=== PATIENT | male | born 1985 ===

== ENCOUNTER 2024-11-10 06:04 | Day surgery (SDC) | payer BC, SELFPAY ==
[2024-11-10] VITALS (13 sets, daily range): BP systolic 100–122; BP diastolic 58–81; PULSE 73–90; RESP 15–20; TEMP 36.5–36.7; O2SAT 93–97; BMI 36.3
[2024-11-10] MEDS: Lactated Ringers 1,000 ML 80 ML IV (06:48)
--- NOTE | 2024-11-10 07:00 | W.PM.HP.N ---
Date of service: 11/10/24 Time of Service: 07:01 Assessment and Plan Assessment and plan (1) Phimosis: Assessment and plan: For circumcision History of Present Illness History of Present Illness Chief Complaint: Phimosis Narrative: This is a 39-year-old gentleman who reports that he has had phimosis for several years. He tells me that when he has tried to retract the skin, he tends to get quite a few cuts on the foreskin. He has pain when he develops an erection. When there is an open raw area on the skin, he will have pain when the urine comes in contact with the open skin He is not seeing any gross hematuria. He has no fever or chills. We are unaware of any positive urine cultures. He has not developed paraphimosis. He has tried topical lidocaine and topical steroids with no improvement. Review of Systems Narrative: No fevers or chills No vision change or dysphasia No diabetes or thyroid No shortness of breath, cough or hemoptysis No chest pain or palpitations No nausea, vomiting, hepatitis, ulcers, jaundice, diarrhea or constipation No seizures, strokes or peripheral neuropathy No bleeding disorders or anemia No gout PFSH All Active Problems Hypertension (Chronic) Polyuria (Acute) History of appendectomy (Chronic) Obesity (Chronic) Molluscum contagiosum infection (Acute) Medical History Phimosis Social History Smoking/Tobacco Use Status: Never Smoking risk assessment performed?: Yes Alcohol Intake: never Drug use: Never Substance use type: does not use Housing: house Do you feel safe at home: Yes Additional Social history: single Meds Allergies and Home Medications Allergies Allergy/AdvReac Type Severity Reaction Status Date / Time No Known Allergies Allergy Verified 11/10/24 06:24 Home Medications ?Medication ?Instructions ?Recorded ?Confirmed ?Type Unknown [No Known Home Meds] 10/10/24 11/07/24 History Exam Const General: cooperative Neck Neck: supple Resp Effort & Inspection: normal respiratory effort Auscultation: clear to auscultation bilaterally Cardio Rate: regular rate Rhythm: regular rhythm GI Palpation: soft Penis: phimosis Neuro General: patient alert, patient awake and patient oriented x3 Results Last Vital Signs Temp 36.7 C 11/10/24 06:14 Pulse 73 11/10/24 06:14 Resp 17 11/10/24 06:14 BP 105/67 11/10/24 06:14 Pulse Ox 97 11/10/24 06:14 Time Spent Time spent with Patient: <40 minutes Time was spent: other
--- NOTE | 2024-11-10 07:04 | W.ANESPRE ---
General Info Date of Service Date Performed: 11/10/24 Height: 5 ft 10 in Weight: 114.8 kg Body Mass Index (BMI): 36.3 Surgical Procedure: Operation Date: 11/10/24 07:40 Proposed Procedure Side Surgeon p Circumcision Tommy Frazier MD Meds Allergies and Home Medications Allergies Allergy/AdvReac Type Severity Reaction Status Date / Time No Known Allergies Allergy Verified 11/10/24 06:24 Home Medication ?Medication ?Instructions ?Recorded Unknown [No Known Home Meds] 10/10/24 Current Visit Medications: Current Medications Generic Name Dose Route Start Last Admin Trade Name Freq PRN Reason Stop Dose Admin Ringer's Solution 1,000 mls @ 80 mls/hr 11/10/24 06:00 11/10/24 06:48 IV 11/10/24 23:59 80 mls/hr INFUSION DIANA Administration Cefazolin Sodium/Dextrose 2 gm in 50 mls @ 100 mls/hr 11/10/24 06:00 Ancef Duplex IVPB 11/10/24 23:59 PREOP DIANA IV Miscellaneous Supplies 1 each 11/10/24 06:00 Iv Access IV 11/10/24 23:59 DIRECTED DIANA Sodium Chloride 0 ml 11/10/24 06:00 Normal Saline Flush 10 Ml Syr IV 11/10/24 23:59 PRN PRN Sodium Chloride 0 ml 11/10/24 06:00 Normal Saline 10 Ml Vial IJ 11/10/24 23:59 DIRECTED PRN Sterile Water 0 ml 11/10/24 06:00 Water,Injection,Sterile 10 Ml Vial IJ 11/10/24 23:59 DIRECTED PRN PFSH Active Problems Active Problems: Problem Status Onset Code Hypertension Chronic I10 Polyuria Acute R35.89 History of appendectomy Chronic Z90.49 Obesity Chronic E66.9 Molluscum contagiosum infection Acute B08.1 Medical History Medical History Phimosis Tobacco Smoking/Tobacco Use Status: Never Passive smoking exposure: No Alcohol Alcohol Intake: never Substance Use Substance use: Never Substance use type: does not use Vital Signs and Lab Results Vital Signs Most Recent Vital Signs in EMR: Most Recent Vital Signs Temp Pulse Resp BP Pulse Ox 36.7 C 73 17 105/67 97 11/10/24 06:14 11/10/24 06:14 11/10/24 06:14 11/10/24 06:14 11/10/24 06:14 Lab Results Blood Type / Crossmatch: No Data to Display Complete Blood Count: No Data to Display Complete Metabolic Panel: No Data to Display Liver Function Panel: No Data to Display Coagulation Panel: No Data to Display Cardiac Panel: No Data to Display Arterial Blood Gas: No Data to Display Venous Blood Gas: No Data to Display Pancreas Panel: No Data to Display Thyroid Panel: No Data to Display Infectious Disease: No Data to Display Blood Cultures: No Data to Display Toxicology Panel: No Data to Display Anesthesia Assessment and Plan Anesthesia History Personal History: No History of Anesthesia Complications Family History: No Family History of Anesthesia Complications Exercise Tolerance Exercise Tolerance: Metabolic Equivalents>4 Cardiac & Pulmonary Exam Cardiac Exam: Normal S1/S2 Heart Sounds Pulmonary Exam: Clear Bilateral Breath Sounds Implantable Cardiac Device Does patient have a Pacemaker or an ICD?: No Airway Exam Known Difficult Airway: No Mallampati Class: 1 Mouth Opening: Normal (> 3cm) Thyromental Distance: Greater than 3 cm Neck Range of Motion: Full ROM Neck Circumference: Normal Teeth Condition: Normal Dentition ASA Classification ASA Score: ASA 2 Emergency Case?: No NPO Status NPO Status: NPO Clears >2 hours, Solids >8 hours Anesthesia Plan Resuscitation Status: Full Code Anesthesia Technique: General Anesthesia Airway Planned: LMA Monitors Used: Standard Monitors and SedLine
[2024-11-10] MEDS: ceFAZolin 2 GM/50 ML BAG IVPB (07:43)
[2024-11-10] MEDS: Bupivacaine 0.5% Pres-Free 30 ML VIAL (07:52)
--- NOTE | 2024-11-10 08:30 | W.PM.DSUDISC ---
Date of service: 11/10/24 Discharge Plan Disposition Patient Disposition: Home Condition: Stable Discharge Details Reason For Visit: circumcision Attending Provider: Tommy Frazier Primary Care Provider: Ceferino Torres Home Meds and New Rx's Prescriptions: No Action No Known Home Meds Discharge Instructions Additional Instructions: followup for wound check 1 to 2 weeks no sexual intercourse for 2 weeks Stand Alone Forms: Anesthesia Discharge Inst., Isra Floyd (DSU) Activity:: no intercourse for 2 weeks Remove Dressings/Wound Care:: 24 hours Shower/Bathe:: 24 hours Diet:: As Tolerated Discharge Orders Discharge Orders: Discharge Order (Routine); Ordered 11/10/24 Ordered By: Tommy Frazier DS: Diagnosis Discharge Diagnosis (1) Phimosis:
--- NOTE | 2024-11-10 08:33 | ROE_ITS ---
Operative Note Operative Note PRE-OP DIAGNOSIS: phimosis POST-OP DIAGNOSIS: same PROCEDURE: circumcision SURGEON: Tommy Frazier ANESTHESIA TYPE: Local By Surgeon and General LMA/ETT Refer to Anesthesia Record ESTIMATED BLOOD LOSS: 20 PATHOLOGY: none sent COMPLICATIONS: None Patient was transported to: PACU Patient's condition: stable Indications: This is a 39-year-old gentleman who has a history of phimosis. He has diff iculty retracting the foreskin and has skin tears that occur when he develops an erection. He presents for circumcision Findings: Inelastic penile skin with multiple skin tears Procedure Description: The patient was given IV antibiotics and brought to the operating room on 11/10/2024. He is placed in the supine position. His genitalia was prepped with Betadine and draped. A circumferential penile nerve block was performed using quarter percent Marcaine. A circumferential incision was made on the outer aspect of the patient's foreskin below the level of the skin tears. A second circumferential incision was made on the inner aspect of the foreskin approximately 2 cm below the coronal sulcus. These incisions were interconnected and the redundant skin was removed. The skin was not sent to pathology for permanent section. Any bleeding points that were encountered were cauterized using the Bovie. The skin edges were then reapproximated using simple interrupted 4-0 chromic sutures. A Xeroflo dressing was then applied to the wound. The patient tolerated the procedure well with no complications. Date of Procedure: 11/10/24
--- NOTE | 2024-11-10 09:40 | W.ANESPOSTOP ---
Postoperative Evaluation Date, Time and Location Date Performed: 11/10/24 Time Performed: 09:40 Patient Location: Day Surgery Unit Vital Signs Most Recent Imported Vital Signs: Most Recent Vital Signs Temp Pulse Resp BP Pulse Ox 36.5 C 82 17 104/72 94 11/10/24 09:11 11/10/24 09:11 11/10/24 09:11 11/10/24 09:11 11/10/24 09:11 Pain Score Most Recent Pain Score: Most Recent Pain Score Pain Level 0 11/10/24 09:11 Assessment Mental Status: Awake (Alert & Oriented to Patient Baseline) Airway and Respiratory Function: Patent airway with normal (patient baseline) respiratory exam Cardiovascular Function: Hemodynamically Stable Hydration Status: Adequately Hydrated Nausea & Vomiting: No Nausea or Vomiting Pain: Pt. Denies Any Pain Peripheral Nerve Block: Patient did not receive a nerve block
== END 2024-11-10 09:57 | disposition home or self-care (01) ==
PROVIDERS: PCP Family Medicine; Visit Provider Urology
PROC: (CPT 54161; principal; 2024-11-10 07:30)
DX: N47.1 Phimosis (principal)
CPT/HCPCS: 54161; J0665; J0690; J1100; J1885; J2003; J2250; J2371; J2405; J2704; J3010